=== PATIENT | female | born 1950 | race African-American/Black ===

== ENCOUNTER → 2016-11-21 | Outpatient (CLI) | payer OTHER ==
[~2016-11-21] MED LIST: CETI10TA22 PO; FLUT9.9S NS; LIPITOR80 MG PO; METF500T4 PO; RANI150T6 PO; TRIA1TAB2 PO
[2016-11-21 08:18] LABS: BASO % 1 % (0-3); EOS % 11 % (0-3); HEMATOCRIT 40.1 % (36.0-47.0); HEMOGLOBIN 12.8 g/dL (12.0-15.5); LYMPH # 2.1 x10^3/uL (1.0-4.8); LYMPH % 33 % (24-48); MEAN CORPUSCULAR HEMOGLOBIN 27 pg (25-35); MEAN CORPUSCULAR HGB CONC 32 g/dL (31-37); MEAN CORPUSCULAR VOLUME 83 fL (79-100); MONO % 8 % (0-9); NEUT % 48 % (31-73); PLATELET COUNT 172 x10^3/uL (140-400); RED BLOOD COUNT 4.82 x10^6/uL (3.50-5.40); RED CELL DISTRIBUTION WIDTH 15.6 % (11.5-14.5); WHITE BLOOD COUNT 6.5 x10^3/uL (4.0-11.0)
[2016-11-21 08:19] LABS: ALBUMIN 3.9 g/dL (3.4-5.0); ALBUMIN/GLOBULIN RATIO 0.9 (1.0-1.7); CALCIUM 9.5 mg/dL (8.5-10.1); GFR 67.3; POTASSIUM 3.2 mmol/L (3.5-5.1); TOTAL BILIRUBIN 0.4 mg/dL (0.2-1.0); TOTAL PROTEIN 8.1 g/dL (6.4-8.2)
[2016-11-21 08:23] LABS: CHOLESTEROL/HDL RATIO 2.7
[2016-11-22 02:12] LABS: VITAMIN D25(OH)TOTAL 28.2 ng/mL (30.0-100.0)
== END | disposition home or self-care (01) ==
LOC: LAB 07:35
PROVIDERS: ATTEND Family Medicine
DX: E11.9 Type 2 diabetes mellitus without complications (principal); E78.5 Hyperlipidemia, unspecified; E55.9 Vitamin D deficiency, unspecified
CPT/HCPCS: 36415; 80053; 80061; 82306; 83036; 85027

== ENCOUNTER → 2017-06-26 | Outpatient (CLI) | payer OTHER ==
[2017-06-26 10:57] LABS: ALBUMIN 3.7 g/dL (3.4-5.0); CALCIUM 9.6 mg/dL (8.5-10.1); GFR 67.1; TOTAL BILIRUBIN 0.3 mg/dL (0.2-1.0); TOTAL PROTEIN 7.3 g/dL (6.4-8.2)
[2017-06-26 11:00] LABS: CHOLESTEROL/HDL RATIO 2.2
== END | disposition home or self-care (01) ==
LOC: LAB 10:05
PROVIDERS: ATTEND Family Medicine
DX: E11.9 Type 2 diabetes mellitus without complications (principal); E55.9 Vitamin D deficiency, unspecified; E78.5 Hyperlipidemia, unspecified
CPT/HCPCS: 36415; 80053; 80061; 82306; 83036

== ENCOUNTER → 2017-12-24 | Outpatient (CLI) | payer OTHER, MEDICARE ==
[2017-12-24 10:10] LABS: ALBUMIN 3.6 g/dL (3.4-5.0); ALBUMIN/GLOBULIN RATIO 0.9 (1.0-1.7); ALK PHOS 109 U/L (46-116); ALT (SGPT) 27 U/L (14-59); ANION GAP 10 (6-14); AST (SGOT) 20 U/L (15-37); BLOOD UREA NITROGEN 11 mg/dL (7-20); BUN/CREATININE RATIO 10 (6-20); CALCIUM 9.3 mg/dL (8.5-10.1); CARBON DIOXIDE 27 mmol/L (21-32); CHLORIDE 106 mmol/L (98-107); CHOLESTEROL 216 mg/dL (0-200); CREATININE 1.1 mg/dL (0.6-1.0); GFR 60.1; GLUCOSE 111 mg/dL (70-99); HDLC 66 mg/dL (40-60); LDLC 142 mg/dL (0-100); NON-HDL CHOLESTEROL 150 mg/dL (0-129); POTASSIUM 4.4 mmol/L (3.5-5.1); SODIUM 143 mmol/L (136-145); TOTAL BILIRUBIN 0.3 mg/dL (0.2-1.0); TOTAL PROTEIN 7.6 g/dL (6.4-8.2); TRIGLYCERIDES 42 mg/dL (0-150); VLDLC 8 mg/dL (0-40)
[2017-12-24 10:12] LABS: CHOLESTEROL/HDL RATIO 3.3
[2017-12-25 00:09] LABS: HEMOGLOBIN A1C 6.5 % (4.8-5.6)
== END | disposition home or self-care (01) ==
LOC: LAB 09:32
DX: E11.9 Type 2 diabetes mellitus without complications (principal); E78.5 Hyperlipidemia, unspecified; I10 Essential (primary) hypertension; E55.9 Vitamin D deficiency, unspecified
CPT/HCPCS: 36415; 80053; 80061; 83036

== ENCOUNTER → 2017-12-24 | Outpatient (CLI) | payer OTHER | END | disposition home or self-care (01) | LOC: KCIC MAMMO 08:43 | DX: Z12.31 Encounter for screening mammogram for malignant neoplasm of breast (principal); E55.9 Vitamin D deficiency, unspecified; I10 Essential (primary) hypertension; E11.9 Type 2 diabetes mellitus without complications; E78.5 Hyperlipidemia, unspecified | CPT/HCPCS: 77067 ==

== ENCOUNTER → 2018-01-07 | Day surgery (SDC) | payer OTHER ==
[~2018-01-07] MED LIST changes: -CETI10TA22 PO; -FLUT9.9S NS; -LIPITOR80 MG PO; -METF500T4 PO; +PROPOFOL 20 ML IV; -RANI150T6 PO; -TRIA1TAB2 PO
[2018-01-07] MEDS: IV RINGERS,LACTATED 1000ML 1,000 ML IV (09:12)
== END | disposition home or self-care (01) ==
LOC: ENDOS 08:40
DX: Z12.11 Encounter for screening for malignant neoplasm of colon (principal); D12.2 Benign neoplasm of ascending colon; D12.5 Benign neoplasm of sigmoid colon; K64.0 First degree hemorrhoids; K57.30 Diverticulosis of large intestine without perforation or abscess without bleeding; Z86.010 Personal history of colon polyps; Z80.0 Family history of malignant neoplasm of digestive organs; Z90.710 Acquired absence of both cervix and uterus; K21.9 Gastro-esophageal reflux disease without esophagitis; J45.909 Unspecified asthma, uncomplicated; E11.9 Type 2 diabetes mellitus without complications; I10 Essential (primary) hypertension; E78.00 Pure hypercholesterolemia, unspecified; Z88.0 Allergy status to penicillin; Z98.51 Tubal ligation status; Z98.890 Other specified postprocedural states; F41.9 Anxiety disorder, unspecified; F32.9 Major depressive disorder, single episode, unspecified; D64.9 Anemia, unspecified; Z79.84 Long term (current) use of oral hypoglycemic drugs
CPT/HCPCS: 45380; 45385; 88305; J2704

== ENCOUNTER → 2018-12-03 | Outpatient (CLI) | payer OTHER ==
[2018-01-07 10:13] VITALS: BP 136/65
[~2018-12-03] MED LIST changes: +CETI10TA22 PO; +FLUT9.9S NS; +LIPITOR80 MG PO; +METF500T16 PO; +OXYB5TAB PO; +POTA20TA82 PO; -PROPOFOL 20 ML IV; +RANI-376 PO; +SERT100T PO; +TRIA1TAB2 PO
--- NOTE | 2018-12-03 13:55 | RAD ---
Examination: VENOUS LOWER EXTREMITY LEFT History: hx lle pain and swelling Comparison/Correlation: None FINDINGS: Bilateral lower extremity duplex venous ultrasound exam was performed. Grayscale, color Doppler, and spectral Doppler imaging was performed. Compression and augmentation was performed. The left common femoral vein, superficial femoral vein, popliteal vein, visualized calf veins and greater saphenous vein are normal with no evidence of deep venous thrombus. Normal compressibility and augmentation is evident. Left groin normal-appearing lymph node measuring up to 1.8 cm diameter is present. Left popliteal cyst measuring 4.2 cm x 2.2 cm x 3.2 cm present. IMPRESSION: Left popliteal cyst. No evidence of deep venous thrombus involving the left lower extremity. Electronically signed by: Jorge Templeton MD (12/03/2018 1:52 PM) [facility]
== END | disposition home or self-care (01) ==
LOC: US 11:11
PROVIDERS: ATTEND Family Medicine
DX: M71.22 Synovial cyst of popliteal space [Baker], left knee (principal)
CPT/HCPCS: 93971

== ENCOUNTER → 2019-01-04 | Outpatient (CLI) | payer OTHER ==
[2018-01-07 10:13] VITALS: BP 136/65
--- NOTE | 2019-01-04 17:37 | KCIC ---
BILATERAL SCREENING MAMMOGRAM History: Routine screening. Comparison: Bilateral mammogram December 24, 2017. Technique: Routine bilateral digital mammogram views were obtained. Findings: Breast Tissue Density C : The breasts are heterogeneously dense, which may obscure small masses. There are no dominant masses, suspicious microcalcifications, or architectural distortion. Enlarged left axillary lymph nodes redemonstrated. The dominant lymph node is slightly larger. More of the axilla is imaged than on the prior study, there are 3 other mildly enlarged lymph nodes. IMPRESSION: Left axillary adenopathy, mildly increased from prior study. Recommend left axillary ultrasound. BI-RADS Category 0: Incomplete: Need additional imaging evaluation. The images were reviewed with computer aided detection. Patient information is entered into the reminder system with a target due date for the next screening mammogram. Mammography is the most sensitive method for finding small breast cancers, but it does not detect them all and is not a substitute for careful clinical examination. A negative mammogram does not negate a clinically suspicious finding and should not result in delay in biopsying a clinically suspicious abnormality. "Our facility is accredited by the [employer] Mammography [employer]." Electronically signed by: Jackson Oconnor MD (01/04/2019 5:34 PM) [id number]
== END | disposition home or self-care (01) ==
LOC: KCIC MAMMO 09:18
PROVIDERS: ATTEND Family Medicine
DX: Z12.31 Encounter for screening mammogram for malignant neoplasm of breast (principal); R59.0 Localized enlarged lymph nodes
CPT/HCPCS: 77067

== ENCOUNTER → 2019-01-18 | Outpatient (CLI) | payer OTHER ==
[2018-01-07 10:13] VITALS: BP 136/65
--- NOTE | 2019-01-18 13:15 | KCIC ---
EXT NON VASC LEFT Clinical Indication: Abnormal screening mammogram. Comparison: Bilateral mammogram January 04, 2019 and dating back to 2013. TECHNIQUE: Real-time ultrasound imaging of the left axilla is performed. Findings: The largest lymph node measures 2.9 x 1.1 x 1 cm. There is cortical thickening with near complete loss of normal fatty hilum. Lateral to this lymph node there is another abnormal lymph node measuring up to 1.4 cm with loss of fatty hilum. There is a third lymph node that is inferior and medial to the largest lymph node that measures 1.5 x 1.2 cm, also with cortical thickening and near complete loss of fatty hilum. IMPRESSION: 1. There are 3 abnormal lymph nodes in the left axilla. Recommend further evaluation with ultrasound guided biopsy of the largest lymph node. 2. BI-RADS category 4, suspicious. 3. Findings and recommendations called to voicemail of Dr. Beckett's medical historian at 1:08 PM. Electronically signed by: Jackson Oconnor MD (01/18/2019 1:12 PM) [facility] [id number]
== END | disposition home or self-care (01) ==
LOC: KCIC US 12:38
PROVIDERS: ATTEND Family Medicine
DX: R59.0 Localized enlarged lymph nodes (principal)
CPT/HCPCS: 76881

== ENCOUNTER 2019-01-27 08:21 | Outpatient (CLI) | payer OTHER, MEDICARE ==
[~2019-01-27] VITALS: Ht 167.6 cm; Wt 72.6 kg
[2019-01-27] MEDS ORDERED: FAMO20TA5 PO (08:47)
[2019-01-27 08:59] VITALS: BP 133/82
[2019-01-27 08:59] LABS: BASO # 0.1 x10^3/uL (0.0-0.2); BASO % 1 % (0-3); EOS # 0.6 x10^3/uL (0.0-0.7); EOS % 10 % (0-3); HEMATOCRIT 39.9 % (36.0-47.0); HEMOGLOBIN 13.2 g/dL (12.0-15.5); LYMPH # 1.8 x10^3/uL (1.0-4.8); LYMPH % 30 % (24-48); MEAN CORPUSCULAR HEMOGLOBIN 27 pg (25-35); MEAN CORPUSCULAR HGB CONC 33 g/dL (31-37); MEAN CORPUSCULAR VOLUME 82 fL (79-100); MONO # 0.5 x10^3/uL (0.0-1.1); MONO % 8 % (0-9); NEUT # 3.1 x10^3uL (1.8-7.7); NEUT % 51 % (31-73); PLATELET COUNT 176 x10^3/uL (140-400); RED CELL DISTRIBUTION WIDTH 16.8 % (11.5-14.5)
[2019-01-27 09:33] LABS: PROTHROMBIN TIME PATIENT 12.1 SEC (11.7-14.0)
[2019-01-27] MEDS ORDERED: LIDOCAINE WITH 8.4% SOD BICARB 3 ML DISP.SYRIN. ONE (09:46)
[2019-01-27 09:52] VITALS: BP 161/79
[2019-01-27] MEDS: LIDOCAINE WITH 8.4% SOD BICARB 3 ML DISP.SYRIN. IJ ONE (10:00)
[2019-01-27 10:04] VITALS: BP 158/72
--- NOTE | 2019-01-27 13:45 | RAD ---
Ultrasound-guided biopsy, left axillary adenopathy 01/27/2019 Indication: Left axillary adenopathy, uncertain etiology. Incidentally discovered during screening mammography. Discussion: The risks and benefits of the procedure were discussed the patient. Informed consent was obtained. A timeout procedure was performed. Left axilla was prepped and draped using sterile barrier technique. 1% lidocaine was administered for local anesthesia. Ultrasound evaluation demonstrates multiple mildly enlarged lymph nodes in the left axilla. The largest was targeted for biopsy. Under direct ultrasound guidance a 18-gauge biopsy needle was advanced and multiple passes through the aforementioned lymph node were made. Samples were divided amongst formalin and RPMI fluid. Manual pressure was held. Sterile dressings were applied. Anesthesia: Local only Impression: Ultrasound-guided biopsy, left axillary adenopathy
== END 2019-01-27 11:10 | disposition home or self-care (01) ==
LOC: INTRAD 08:21
PROVIDERS: ATTEND Family Medicine
DX: R59.1 Generalized enlarged lymph nodes (principal); Z79.01 Long term (current) use of anticoagulants
CPT/HCPCS: 36415; 38505; 76942; 85025; 85610; 88184; 88185

== ENCOUNTER → 2020-05-29 | Outpatient (CLI) | payer OTHER ==
[~2020-05-29] MED LIST changes: -CETI10TA22 PO; +CETI10TA74 PO; +FAMO20TA5 PO; +OXYB-36 PO; -OXYB5TAB PO; +POTA20TA4 PO; -POTA20TA82 PO
--- NOTE | 2020-05-29 19:18 | KCIC ---
Bilateral digital screening mammograms: Reason for examination: Routine screening. Comparison is made to previous studies dated back to 03/13/2011. Interpretation was made with the benefit of CAD. The skin and nipples show no abnormalities. There continue to be enlarged lymph nodes in the left axilla. The breast parenchyma is heterogeneously dense. (Breast density: Category C.) There are no new dominant masses, suspicious calcifications or architectural distortion. Impression: Continued presence of enlarged lymph nodes in the left axilla. These have been previously biopsied. Recommend clinical correlation. No evidence of abnormality in the breasts. Recommend routine screening. Your patient's mammogram demonstrates that she has dense breast tissue (breast density category C or D), which could hide abnormalities, and if she has other risk factors for breast cancer that have been identified, she might benefit from supplemental screening tests that may be suggested by you as her ordering physician. Dense breast tissue, in and of itself, is a relatively common condition. Therefore, this information is not provided to cause undue concern, but rather to raise your awareness and to promote discussion with your patient regarding the presence of other risk factors, in addition to dense breast tissue. Your patient's mammography results will be sent to her. BI-RAD Category 2: Benign. "Our facility is accredited by the [employer] Mammography Program." This patient's information has been entered into a reminder system for the patient to be notified with the results of her examination and a target date for the next mammogram. Electronically signed by: Savana Arredondo MD (05/29/2020 7:15 PM) [id number]
== END ==
LOC: KCIC MAMMO 14:18
PROVIDERS: ATTEND Family Medicine
DX: Z12.31 Encounter for screening mammogram for malignant neoplasm of breast (principal)
CPT/HCPCS: 77067

== ENCOUNTER → 2021-05-31 | Outpatient (CLI) | payer OTHER ==
--- NOTE | 2021-05-31 15:27 | KCIC ---
Bilateral digital screening mammograms: Reason for examination: Routine screening. Comparison is made to previous studies dated back to 03/13/2011. Bilateral mammograms in CC and oblique projections were obtained with 2-D imaging and reviewed on the workstation. Interpretation was made with the benefit of CAD. The skin and nipples show no abnormalities. There continues to be a prominent lymph node high in the left axilla which is stable. The breast parenchyma is heterogeneously dense. (Breast density: Categor y C.) There continues be some asymmetric parenchyma anteriorly laterally in the right breast which is stable. There are no new dominant masses, suspicious calcifications or architectural distortion. Impression: No evidence of malignancy. Recommend routine screening. Your patient's mammogram demonstrates that she has dense breast tissue (breast density category C or D), which could hide abnormalities, and if she has other risk factors for breast cancer that have bee n identified, she might benefit from supplemental screening tests that may be suggested by you as her ordering physician. Dense breast tissue, in and of itself, is a relatively common condition. Therefo re, this information is not provided to cause undue concern, but rather to raise your awareness and t o promote discussion with your patient regarding the presence of other risk factors, in addition to d ense breast tissue. Your patient's mammography results will be sent to her. BI-RAD Category 2: Benign. "Our facility is accredited by the [employer] Mammography Program." This patient's information has been entered into a reminder system for the patient to be notified wit h the results of her examination and a target date for the next mammogram. Electronically signed by: Savana Arredondo MD (05/31/2021 3:25 PM) [facility]
== END ==
LOC: KCIC MAMMO 13:48
PROVIDERS: ATTEND Family Medicine
DX: Z12.31 Encounter for screening mammogram for malignant neoplasm of breast (principal)
CPT/HCPCS: 77067